=== PATIENT | female | born 1985 | race Caucasian/White ===

== ENCOUNTER 2017-01-02 12:06 | Emergency (ER) | payer OTHER ==
[~2017-01-02] VITALS: Ht 172.7 cm; Wt 113.6 kg
[~2017-01-02 12:06] MED LIST: BACL10TA PO; DICY20TA10 PO; LORA0.5T PO; NORE-59 PO; PANT20TA2 PO; PARO10TA2 PO
[2017-01-02 12:14] VITALS: BP 176/126; PULSE 83; RESP 18; O2SAT 98
[2017-01-02] MEDS ORDERED: Promethazine 50 mg/mL Inj IM ONE (12:45)
--- NOTE | 2017-01-02 12:45 | ED.REPORT ---
HPI-Abd Pain F Under 40 Date of Service Jan 02, 2017 ED Provider: Ty Lowry DO Pt is a 31 year old female with a hx of cyclical vomiting presenting to the ED complaining of epigastric abdominal pain and vomiting onset at 0400 this morning. Denies SOB, wheezing, fever, or diarrhea. She states that she has had cyclical vomiting for 30 years. She reports smoking marijuana once per day but states that the vomiting is unrelated and that she has not smoked in 2 days. She states that she usually gets 6 mg Dilaudid and 50 mg of Phenergan for these symptoms from her PCP. The cause for the vomiting has not been identified. Symptoms are not relieved by anything. Nursing Notes Stated Complaint: VOMITING Chief Complaint: Female Abdominal Pain Nursing Notes Reviewed: Yes Allergies: Coded Allergies: Penicillins (Verified Allergy, Severe, 01/16/16) amoxicillin (Verified Allergy, Severe, 01/16/16) haloperidol (Verified Allergy, Unknown, dystonic reaction, 01/16/16) Scheduled Baclofen (Baclofen) 10 Mg Tablet 10 MG PO BID Lorazepam (Lorazepam) 0.5 Mg Tablet 0.5 MG PO HS Noreth A-Et Estra/Fe Fumarate (Erica Fe 1.5-30 Tablet) 1 Each Tablet 1 TAB PO DAILY Pantoprazole DR (Pantoprazole DR) 20 Mg Tablet.dr 20 MG PO BID Paroxetine (Paroxetine) 10 Mg Tablet 10 MG PO HS Scheduled PRN Dicyclomine (Dicyclomine) 20 Mg Tablet 1 TAB PO QID PRN PRN For GI Cramps Promethazine Supp (Promethazine Supp) 50 Mg Supp 50 MG RECTAL Q8H PRN PRN For Nausea/Vomiting General Time Seen by MD: 12:36 Chief Complaint Abdominal pain, Vomiting severe Hx Obtained From: Patient Arrived By: Walk-in Sudden in Onset?: Yes Onset Occurred: 9 - 12 hours ago Symptom Duration: Since onset Progression since Onset: Constant Location: : Epigastric Quality: Painful Severity: Current: Moderate Severity: Maximum: Severe Recent Healthcare: No recent doctor visit, No recent hospitalization Similar Sx Previous: Yes Past Medical History Past Medical History Notes: PCP: Dr. Lee - recently retired Pt seen 01/14/16 in ED for Abd Pain, eloped from ED w/IV in place Past Medical History ho Cyclic vomiting with multiple ED visits Past Surgical History celiac plexus block Reports: Family History Noncontributory Smoking History Never Smoker Social History Alcohol Use: Denies alcohol use Drug Use: THC Other Social History: Frequent ED visitor, Local resident Occupation Nurse Ambulatory Status Independent Review of Systems Constitutional: Denies: Fever Respiratory: Denies: Shortness of breath, Wheezing GI: Reports: Abdominal pain, Vomiting, Denies: Diarrhea Complete sys rev & neg: except as marked. Physical Exam Initial Vital Signs Vital Signs (First) Date Time Temp Pulse Resp B/P Pulse Ox O2 Delivery O2 Flow Rate FiO2 01/02/17 12:14 36.2 83 18 176/126 98 Initial VS: Reviewed Head / Eyes: Atraumatic, Normocephalic, PERRL ENT: Mucous membranes moist, Conjunctiva normal, No scleral icterus Extremities: Vascular intact, Neuro intact, No swelling, No tenderness Skin: Warm, Dry, No cyanosis Neurologic: Alert, Oriented, Nonfocal Psychiatric: Mood/affect normal, Behavior normal, Normal thought content General/Constitutional: Awake, Alert Behavior: Positive: Agitated, Restless Appearance / Presentation: Positive: Obese Respiratory / Chest: Atraumatic, Breath sounds NL, Breath sounds = bilat, No respiratory distress Cardiovascular: Heart rate NL, Regular rhythm, Heart sounds NL Abdomen: Atraumatic, Soft, Non-tender, No guarding, No rebound, BS normoactive , No distention Interpretation & Diagnostics Lab Results Interpretation Test 01/02/17 13:43 01/02/17 16:02 Hold Purple Top Tube Received (Received) Hold Blue Top Tube Received (Received) Hold [place] Top Tube Received (Received) Hold Urine Received (Received) Re-Eval/Medical Decision Med Decision/Clinical Course Med Decision/Clinical Course: Acute on chronic cyclical vomiting syndrome. Will plan to medicate with Phenergan, Benadryl, Compazine, Zofran. Re-Evaluation/Progress : Time of Eval: 14:57 Patient Status: Condition improved Re-Evaluation/Progress Note: Pt states that she last vomited a few minutes ago. When I ask her to drink some juice she states "I can't." Counseled Regarding: Diagnosis, Lab results, Need for follow-up, When/why to return to ED Discharge & Departure Primary Impression: Cyclical vomiting Vomiting Intractability: intractable Nausea presence: unspecified Qualified Code: G43.A1 - Cyclical vomiting, intractable Disposition: Home Discharge Condition All VS Reviewed: Yes Condition: Improved Patient Instructions: Acute Nausea and Vomiting (ED) Additional Instructions: No dangerous cause for your abdominal pain and vomiting was identified. Follow up with your primary care doctor in the next few days. Use Phenergan suppositories as needed Return to the ER if you develop any new or worsening symptoms. Drink plenty of fluids and stay hydrated. Scribe Attestation Portions of this note were transcribed by Cindy Mauro. I, Dr. Lowry personally performed the history, physical exam and medical decision-making; I reviewed and confirmed the accuracy of the information in the transcribed note. Signed by: Mickey Greco, 01/02/2017. Ty Lowry DO Jan 02, 2017 12:45 CINDY MAURO Jan 02, 2017 12:49
[2017-01-02] MEDS ORDERED: Promethazine 25 mg/mL Inj IM ONE (12:55)
[2017-01-02] MEDS ORDERED: 0.9% Sodium Chloride 1,000 ML IV ONE (13:35)
[2017-01-02] MEDS ORDERED: Ketorolac 15 mg/mL Inj IVPUSH ONE (14:20)
[2017-01-02] MEDS ORDERED: ProchlorPERazine 5 mg/mL 2 mL Inj IVPUSH ONE (15:00)
[2017-01-02] MEDS ORDERED: Ondansetron 2 mg/mL 2 mL Inj IVPUSH PRN (15:25)
[2017-01-02] MEDS ORDERED: [UNRECOGNIZED DRUG - CODE] RECTAL (15:26)
== END 2017-01-02 17:08 | disposition home or self-care (01) ==
LOC: SED 12:06
DX: G43.A1 Cyclical vomiting, in migraine, intractable (principal); R10.13 Epigastric pain; Z88.0 Allergy status to penicillin; Z88.1 Allergy status to other antibiotic agents; Z88.8 Allergy status to other drugs, medicaments and biological substances
CPT/HCPCS: 81025; 96361; 96372; 96374; 96375; 99284; J0780; J1200; J1885; J2550; J7030